=== PATIENT | male | born 1980 | race Caucasian/White ===

== ENCOUNTER 2017-04-11 17:49 | Emergency (ER) | payer BC ==
[2017-04-11 19:55] LABS: BASOPHILS 0.3 % (0-2); EOSINOPHILS 1.9 % (0-7); HEMOGLOBIN 15.1 g/dL (13.5-17.5); IMMATURE GRANULOCYTES 3.8 % (0-5); MCH 29.5 pg (26.0-34.0); MCHC 34.3 g/dL (31.0-37.0); MCV 86.1 fL (80.0-100.0); MEAN PLATELET VOLUME 9.7 fL (7.4-10.4); MONOCYTES 7.6 % (2-11); NEUTROPHILS 64.4 % (40-80); PLATELET COUNT 279 10x3/uL (130-400); RBC 5.11 10x6/uL (4.20-6.10); RDW 12.5 % (11.5-14.5); WBC 7.3 10x3/uL (4.8-10.8)
[2017-04-11 20:08] LABS: CALC OSMOLALITY 275 mosm/kg (275-300); CALCIUM 9.1 mg/dL (8.5-10.1); CARBON DIOXIDE 29.4 mmol/L (21.0-32.0); CHLORIDE - SERUM 101 mmol/L (98-107); CREATININE - SERUM 0.9 mg/dL (0.6-1.3); GLUCOSE 107 mg/dL (74-106); POTASSIUM - SERUM 4.2 mmol/L (3.5-5.1); SODIUM 137 mmol/L (136-145); UREA NITROGEN 18 mg/dL (7-18); eGFR NON AFRICAN AMERICAN > 90 mL/min (90-120)
== END 2017-04-11 21:20 | disposition home or self-care (01) ==
LOC: D.ER 17:49
PROVIDERS: Physician Assistant Medical
DX: J18.9 Pneumonia, unspecified organism (principal)